=== PATIENT | male | born 1955 | race Caucasian/White ===

== ENCOUNTER 2017-07-12 05:49 | Emergency (ER) | payer OTHER ==
[~2017-07-12] VITALS: Ht 167.6 cm; Wt 98.6 kg
[~2017-07-12 05:49] MED LIST: ASPIRIN E.C. 8181 MG PO; CALCIUM CARBON650 M2 PO; CARDI-OMEGA1000 MG PO; CARDURA 8MG TAB8 MG PO; GLUCOSAMINE & C1 CA2 PO; IBU800 M1 PO; IRON TABLETS325 MG PO; LIPITOR 10MG10 MG PO; MULTIPLE VITAMI1 CAP PO; TENORMIN 5050 MG/TAB PO
[2017-07-12 05:55] VITALS: BP 135/65; TEMP 97.9
[2017-07-12] MEDS ORDERED: PYRIDIUM 100MG100 MG PO (06:33)
[2017-07-12 07:10] VITALS: PULSE 84
== END 2017-07-12 07:10 | disposition home or self-care (01) ==
LOC: COL.ER 05:49
DX: R33.9 Retention of urine, unspecified (principal); N13.5 Crossing vessel and stricture of ureter without hydronephrosis; Z98.890 Other specified postprocedural states; E78.5 Hyperlipidemia, unspecified

== ENCOUNTER → 2021-01-16 | Outpatient (CLI) | payer OTHER ==
[~2021-01-16] MED LIST changes: +CELEBREX 200MG200 MG PO; +FLOMAX 0.40.4 MG/CAP PO; +GLUCOSAMIN 500 PO; +METAMUCIL3.4 GM/DOS PO; +MICARDIS40 MG PO; +ONE-A-DAY ESSE1 EACH PO; +PYRIDIUM 100MG100 MG PO; +TYLENOL 325MG325 MG PO; +TYLENOL 500MG500 MG PO; +VIAGRA100 M1 PO
== END ==
LOC: ZCOL.LAB 10:48
DX: Z20.822 Contact with and (suspected) exposure to COVID-19 (principal)

== ENCOUNTER 2021-01-20 11:13 | Inpatient (IN) | payer OTHER ==
[2021-01-20] VITALS (10 sets, daily range): BP systolic 111–157; BP diastolic 66–86; PULSE 55–89; TEMP 97.4–97.7
[~2021-01-20] VITALS: Ht 167.6 cm; Wt 108.2 kg
[~2021-01-20 11:13] MED LIST changes: -CELEBREX 200MG200 MG PO; -FLOMAX 0.40.4 MG/CAP PO; -GLUCOSAMIN 500 PO; -METAMUCIL3.4 GM/DOS PO; -MICARDIS40 MG PO; -ONE-A-DAY ESSE1 EACH PO; -TYLENOL 325MG325 MG PO; -TYLENOL 500MG500 MG PO; -VIAGRA100 M1 PO
[2021-01-20] MEDS ORDERED: ONE-A-DAY ESSE1 EACH PO (12:28)
[2021-01-20] MEDS ORDERED: MICARDIS40 MG PO (12:29)
[2021-01-20] MEDS ORDERED: CELEBREX 200MG200 MG PO (12:29)
[2021-01-20] MEDS ORDERED: FLOMAX 0.40.4 MG/CAP PO (12:30)
[2021-01-20] MEDS ORDERED: TYLENOL 325MG325 MG PO (12:32)
[2021-01-20] MEDS ORDERED: TYLENOL 500MG500 MG PO (12:33)
[2021-01-20] MEDS ORDERED: GLUCOSAMIN 500 PO (12:34)
[2021-01-20] MEDS ORDERED: VIAGRA100 M1 PO (12:34)
[2021-01-20] MEDS ORDERED: METAMUCIL3.4 GM/DOS PO (12:36)
--- NOTE | 2021-01-20 16:15 | NUR ---
PATIENT ADMITED INTO ROOM 349 POST OP. A&O. VSS. DENIES PAIN. WASSERMAN TO DD WITH MOD AMOUNTS OF REDDISH COLORED URINE NOTED, NO CLOTS. CBI INFUSING AT MOD RATE. NO C/O N/V. LEFT FORARM IV INFUSING VIA PUMP. HEAD TO TOE ASSESSMENT COMPLETE. SCD'S TO BLE. ORIENTED TO ROOM. CALL LIGHT IN REACH. NO FAMILY AT BEDSIDE AT THIS TIME.
--- NOTE | 2021-01-20 21:00 | NUR ---
Pt. sitting up in bed at this time. Pt. is A&OX3, assessment complete. IV to lt. forearm patent. Ruvalcaba catheter with CBI, urine is pink at this time. Pt. denies pain or other needs, call light within reach.
[2021-01-21 04:14] VITALS: BP 127/62; PULSE 84; TEMP 97.2
[2021-01-21 07:32] VITALS: BP 143/72; PULSE 92; TEMP 97.7
[2021-01-21] MEDS ORDERED: PYRIDIUM 100MG100 MG PO (07:34)
--- NOTE | 2021-01-21 08:30 | NUR ---
Patient sitting up in bed, alert and oriented x 3. Assessment complete. Denies pain at this time. CBI clamped, vickers to DD with clear peach urine present. SCDS to BLE. Denies further needs at this time.
--- NOTE | 2021-01-21 08:53 | NUR ---
Ruvalcaba discontinued per orders, primed and pulled. Patient educated on 6 cup routine. Denies pain or further needs at this time.
[2021-01-21 11:39] VITALS: BP 154/78; PULSE 58; TEMP 97.5
--- NOTE | 2021-01-21 13:00 | NUR ---
Patient completed 6 cup routine, urine light peach color at this time. Patient voiding without difficulties.
--- NOTE | 2021-01-21 13:20 | NUR ---
First visit from the classified ad clerk. prayed with patient. No other needs right now.
--- NOTE | 2021-01-21 13:30 | NUR ---
Discharge education provided to patient. Educated on when to call provider and follow up appointments. Patient educated on increasing fluid intake. Educated on new medication. All questions answered. INT to left forarm discontinued per orders, catheter tip intact. Denies further needs at this time. Patient out with surgical staff.
== END 2021-01-21 13:30 | disposition home or self-care (01) | DRG 713 ==
LOC: SDCO 11:13 → SURG 16:15 → SDCO 01-21 11:53 → SURG 01-21 13:30
PROVIDERS: ADMIT Urology
PROC: 0VB07ZZ Excision of Prostate, Via Natural or Artificial Opening (ICD-10-PCS; principal; 2021-01-21)
DX: N40.1 Benign prostatic hyperplasia with lower urinary tract symptoms (principal); N13.8 Other obstructive and reflux uropathy; N35.011 Post-traumatic bulbous urethral stricture; R35.0 Frequency of micturition; R39.14 Feeling of incomplete bladder emptying; E78.00 Pure hypercholesterolemia, unspecified; I10 Essential (primary) hypertension; E78.5 Hyperlipidemia, unspecified; R39.12 Poor urinary stream; R35.1 Nocturia; Z88.8 Allergy status to other drugs, medicaments and biological substances
CPT/HCPCS: OP; J0690; J1100; J2405; J2704; J3010; J3480; J7120